=== PATIENT | female | born 1960 | race Caucasian/White ===

== ENCOUNTER 2022-10-18 12:21 | Inpatient (IN) | payer OTHER, BC ==
[~2022-10-18] VITALS: Ht 152.4 cm; Wt 57.8 kg
[2022-10-18 12:38] VITALS: BP_SYST 118; PULSE 80; RESP 18; TEMP 98.3; O2SAT 98
[2022-10-18 12:58] LABS: BASOPHILS % (AUTO) 0.3 % (0.0-2.0); HEMATOCRIT 24.8 % (36-48); HEMOGLOBIN 7.6 g/dL (12.0-16.0); LYMPHOCYTES # (AUTO) 0.1 K/uL (1.0-5.5); LYMPHOCYTES % (AUTO) 0.7 % (20.5-51.5); MEAN CORPUSCULAR HEMOGLOBIN 26 pg (27-31); MEAN CORPUSCULAR HGB CONC 31 % (32-36); MEAN CORPUSCULAR VOLUME 84 fL (79.0-98.0); MONOCYTES # (AUTO) 0.9 K/uL (0.0-1.0); MONOCYTES % (AUTO) 5.3 % (1.7-9.3); NEUTROPHILS # (AUTO) 16.2 K/uL (1.8-7.7); NEUTROPHILS % (AUTO) 93.7 % (40.0-70.0); RED BLOOD CELL COUNT(AUTO) 2.97 MIL/uL (4.2-6.2); RED CELL DISTRIBUTION WIDTH 18.5 % (9.0-15.0); WHITE BLOOD COUNT (AUTO) 17.3 K/uL (4.8-10.8)
[2022-10-18 13:14] LABS: INR 1.7 (0.8-1.2); PROTHROMBIN TIME 16.7 SECS (9.5-12.5)
[2022-10-18 13:20] LABS: PLATELET COUNT (AUTO) 71 K/uL (130-430)
[2022-10-18] MEDS: D5/0.45 NS 1,000 ML IV SCH ×2 (13:30→23:30)
[2022-10-18 13:32] LABS: ACETONE, SERUM NEGATIVE (NEGATIVE)
[2022-10-18 13:47] LABS: ALANINE AMINOTRANSFERASE 11 U/L (12-78); ALBUMIN 1.2 g/dL (3.4-4.8); AMYLASE 27 U/L (0-100); ANION GAP 9 (5-15); ASPARTATE AMINOTRANSFERASE 30 U/L (10-37); CALCIUM 7.8 mg/dL (8.4-11.0); CARBON DIOXIDE 29 mmol/L (23-29); CHLORIDE 100 mmol/L (98-107); CREATININE 3.61 mg/dL (0.55-1.30); GFR AFRICAN AMERICAN 16 mL/min (>90); GLUCOSE 345 mg/dL (74-106); LIPASE 159 U/L (73-393); SODIUM SERUM 138 mmol/L (136-145); TOTAL BILIRUBIN 1.7 mg/dL (0.0-1.0); TOTAL PROTEIN, SERUM 4.7 g/dL (6.4-8.3); UREA NITROGEN, BLOOD 61 mg/dL (8-21)
[2022-10-18 13:50] LABS: GFR NON AFRICAN-AMERICAN 13 mL/min (>90); POTASSIUM 2.6 mmol/L (3.5-5.1)
[2022-10-18] MEDS ORDERED: PIPERACILLIN/TAZO 4.5GM/DEX-IS 100 ML IV SCH (14:15)
[2022-10-18] MEDS ORDERED: NACL 0.9% 1,000 ML IV ONE (14:15)
[2022-10-18] MEDS ORDERED: KCL 20 mEq in 100 mL (PREMIX) 100 ML IV ONE (14:15)
[2022-10-18] MEDS ORDERED: GASTROGRAFIN 120 ML ONE (14:47)
[2022-10-18] MEDS ORDERED: VANCOMYCIN HCL 750 MG in NS 250 ML IV ONE (15:15)
[2022-10-18] MEDS ORDERED: PIPERACILLIN/TAZO 4.5GM/DEX-IS 100 ML IV ONE (16:00)
[2022-10-18] MEDS ORDERED: FOLI-43 PO (16:22)
[2022-10-18] MEDS ORDERED: FERR325T30 PO (16:22)
[2022-10-18] MEDS ORDERED: ONDA4TAB55 PO (16:22)
[2022-10-18] MEDS ORDERED: EMPA10TA PO (16:22)
[2022-10-18] MEDS ORDERED: RIFA200T10 PO (16:22)
[2022-10-18] MEDS ORDERED: SILV50CR43 TP (16:22)
[2022-10-18] MEDS ORDERED: MIDO5TAB4 PO (16:22)
[2022-10-18] MEDS ORDERED: IPRA3AMP9 HHN (16:22)
[2022-10-18] MEDS ORDERED: PANT40TA45 PO (16:22)
[2022-10-18 18:25] VITALS: BP_SYST 139; PULSE 89; RESP 16; TEMP 96.5; O2SAT 97
[2022-10-18 20:00] VITALS: BP_SYST 132; PULSE 82; RESP 16; TEMP 97.2; O2SAT 96
[2022-10-18] MEDS: PANTOPRAZOLE SODIUM 40 MG TAB PO SCH (20:55)
[2022-10-18] MEDS: MIDODRINE HCL 5 MG TABLET (PROAMATINE) PO SCH (20:55)
[2022-10-19] VITALS (9 sets, daily range): BP systolic 90–136; PULSE 86–100; RESP 16–18; TEMP 97–97.7; O2SAT 95–100
[2022-10-19] MEDS ORDERED: ONDANSETRON 4 MG ODT TAB PO PRN (04:00)
[2022-10-19 06:22] LABS: BASOPHILS # (AUTO) 0.1 K/uL (0.0-0.2); BASOPHILS % (AUTO) 0.3 % (0.0-2.0); HEMATOCRIT 27.6 % (36-48); HEMOGLOBIN 8.5 g/dL (12.0-16.0); LYMPHOCYTES # (AUTO) 0.1 K/uL (1.0-5.5); LYMPHOCYTES % (AUTO) 0.3 % (20.5-51.5); MEAN CORPUSCULAR HEMOGLOBIN 26 pg (27-31); MEAN CORPUSCULAR HGB CONC 31 % (32-36); MEAN CORPUSCULAR VOLUME 84 fL (79.0-98.0); MONOCYTES # (AUTO) 0.9 K/uL (0.0-1.0); MONOCYTES % (AUTO) 3.4 % (1.7-9.3); NEUTROPHILS # (AUTO) 23.8 K/uL (1.8-7.7); PLATELET COUNT (AUTO) 88 K/uL (130-430); RED CELL DISTRIBUTION WIDTH 18.5 % (9.0-15.0); WHITE BLOOD COUNT (AUTO) 24.8 K/uL (4.8-10.8)
[2022-10-19 06:39] LABS: CALCIUM 7.8 mg/dL (8.4-11.0); CREATININE 3.96 mg/dL (0.55-1.30); POTASSIUM 3.2 mmol/L (3.5-5.1)
[2022-10-19] MEDS: IPRATROPIUM/ALBUTEROL SULFATE 3 ML AMPUL.NEB (DUONEB) IH SCH ×3 (08:09→23:08)
[2022-10-19] MEDS: RIFAXIMIN 200 MG TABLET GT SCH (08:51)
[2022-10-19] MEDS: LACTULOSE 20 GM/30 ML UDC PO SCH ×3 (08:51→21:00)
[2022-10-19] MEDS: PANTOPRAZOLE SODIUM 40 MG TAB PO SCH ×2 (08:51→21:00)
[2022-10-19] MEDS: FERROUS SULFATE 325 MG TABLET.DR PO SCH (08:51)
[2022-10-19] MEDS: MIDODRINE HCL 5 MG TABLET (PROAMATINE) PO SCH ×3 (08:51→21:00)
[2022-10-19] MEDS: FOLIC ACID 1 MG TABLET PO SCH (08:51)
[2022-10-19] MEDS: SILVER SULFADIAZINE 1%, 25 GM TOPICAL CREAM (SSD) TP SCH (09:00)
[2022-10-19] MEDS ORDERED: EMPAGLIFLOZIN 10 MG TABLET PO SCH (09:00)
[2022-10-19] MEDS ORDERED: cefTRIAXone 1 GM in D5W 50 ML IV SCH (09:00)
[2022-10-19] MEDS: D5/0.45 NS 1,000 ML IV SCH ×2 (09:09→23:21)
[2022-10-19] MEDS ORDERED: KCL 20 mEq in 100 mL (PREMIX) 100 ML IV ONE (12:00)
[2022-10-19] MEDS ORDERED: *TPN PER PHARMACY XX PRN (14:15)
[2022-10-19] MEDS ORDERED: DEXTROSE 50% JECT 50 ML DISP.SYRIN IVP PRN (14:15)
[2022-10-19] MEDS ORDERED: BALSAM PERU/CASTOR OIL 56.7 GM OINT...G. TP PRN (16:15)
[2022-10-19] MEDS: PIPERACILLIN/TAZO 2.25G/DEX-IS 50 ML IV SCH ×2 (17:26→23:21)
[2022-10-19] MEDS ORDERED: ALBUMIN HUMAN 25% 100 ML IV ONE ×2 (19:49→20:00)
[2022-10-19] MEDS ORDERED: ALBUMIN HUMAN 25% 200 ML IV ONE (20:00)
[2022-10-19] MEDS: BALSAM PERU/CASTOR OIL 56.7 GM OINT...G. TP SCH (21:36)
[2022-10-20] VITALS (9 sets, daily range): BP systolic 75–101; PULSE 73–92; RESP 14–20; TEMP 96.4–97.9; O2SAT 94–99
[2022-10-20] MEDS: PIPERACILLIN/TAZO 2.25G/DEX-IS 50 ML IV SCH ×4 (05:33→23:02)
[2022-10-20] MEDS: IPRATROPIUM/ALBUTEROL SULFATE 3 ML AMPUL.NEB (DUONEB) IH SCH ×3 (07:28→23:33)
[2022-10-20 07:46] LABS: ALBUMIN 1.8 g/dL (3.4-4.8); CALCIUM 7.5 mg/dL (8.4-11.0); CREATININE 2.74 mg/dL (0.55-1.30); PHOSPHORUS 4.6 mg/dL (2.7-4.5); POTASSIUM 3.8 mmol/L (3.5-5.1); TOTAL BILIRUBIN 2.7 mg/dL (0.0-1.0); TOTAL PROTEIN, SERUM 3.9 g/dL (6.4-8.3)
[2022-10-20 07:55] LABS: BASOPHILS % (AUTO) 0.1 % (0.0-2.0); LYMPHOCYTES # (AUTO) 0.1 K/uL (1.0-5.5); LYMPHOCYTES % (AUTO) 0.6 % (20.5-51.5); MEAN CORPUSCULAR HEMOGLOBIN 26 pg (27-31); MEAN CORPUSCULAR HGB CONC 31 % (32-36); MEAN CORPUSCULAR VOLUME 83 fL (79.0-98.0); MONOCYTES # (AUTO) 0.5 K/uL (0.0-1.0); MONOCYTES % (AUTO) 4.2 % (1.7-9.3); NEUTROPHILS # (AUTO) 12.4 K/uL (1.8-7.7); NEUTROPHILS % (AUTO) 95.1 % (40.0-70.0); RED BLOOD CELL COUNT(AUTO) 2.32 MIL/uL (4.2-6.2); RED CELL DISTRIBUTION WIDTH 18.7 % (9.0-15.0)
[2022-10-20] MEDS: FOLIC ACID 1 MG TABLET PO SCH (09:00)
[2022-10-20] MEDS: FERROUS SULFATE 325 MG TABLET.DR PO SCH (09:00)
[2022-10-20] MEDS: MIDODRINE HCL 5 MG TABLET (PROAMATINE) PO SCH ×3 (09:00→20:20)
[2022-10-20] MEDS: LACTULOSE 20 GM/30 ML UDC PO SCH ×3 (09:00→20:20)
[2022-10-20] MEDS: PANTOPRAZOLE SODIUM 40 MG TAB PO SCH ×2 (09:00→20:21)
[2022-10-20] MEDS: RIFAXIMIN 200 MG TABLET GT SCH (09:00)
[2022-10-20 09:13] LABS: HEMATOCRIT 19.2 % (36-48)
[2022-10-20 09:14] LABS: PLATELET COUNT (AUTO) 39 K/uL (130-430)
[2022-10-20] MEDS ORDERED: DEXTROSE 50% JECT 50 ML DISP.SYRIN IVP PRN (09:30)
[2022-10-20] MEDS ORDERED: *PPN PER PHARMACY XX PRN (09:30)
[2022-10-20] MEDS ORDERED: INSULIN REGULAR, HUMAN 100 UNITS/ML, 3 ML VIAL (humuLIN R) SUBCUT PRN (09:30)
[2022-10-20] MEDS: SILVER SULFADIAZINE 1%, 25 GM TOPICAL CREAM (SSD) TP SCH (09:45)
[2022-10-20] MEDS: BALSAM PERU/CASTOR OIL 56.7 GM OINT...G. TP SCH ×2 (09:45→20:21)
[2022-10-20] MEDS: INSULIN REGULAR, HUMAN 100 UNITS/ML, 3 ML VIAL (humuLIN R) SUBCUT PRN ×3 (12:10→23:06)
[2022-10-20] MEDS ORDERED: [UNRECOGNIZED DRUG - OTHER] IV SCH ×7 (21:00)
[2022-10-20] MEDS ORDERED: MVI IV SCH ×7 (21:00)
[2022-10-20] MEDS ORDERED: TPN PERIPHERAL IV SCH ×7 (21:00)
[2022-10-20] MEDS ORDERED: POTASSIUM CHLORIDE IV SCH ×7 (21:00)
[2022-10-20] MEDS ORDERED: SODIUM CHLORIDE IV SCH ×7 (21:00)
[2022-10-21] VITALS (8 sets, daily range): BP systolic 92–124; PULSE 75–93; RESP 16–18; TEMP 96.3–98.4; O2SAT 96–99
[2022-10-21] MEDS: MENTHOL/ZINC OXIDE 113 GM OINT. TP PRN (02:07)
[2022-10-21] MEDS: PIPERACILLIN/TAZO 2.25G/DEX-IS 50 ML IV SCH ×4 (05:07→23:39)
[2022-10-21] MEDS: D5/0.45 NS 1,000 ML IV SCH (05:07)
[2022-10-21] MEDS: INSULIN REGULAR, HUMAN 100 UNITS/ML, 3 ML VIAL (humuLIN R) SUBCUT PRN (05:29)
[2022-10-21 06:14] LABS: BASOPHILS # (AUTO) 0.1 K/uL (0.0-0.2); BASOPHILS % (AUTO) 0.8 % (0.0-2.0); EOSINOPHILS # (AUTO) 0.1 K/uL (0.0-0.4); EOSINOPHILS % (AUTO) 0.6 % (0.0-4.0); HEMATOCRIT 32.3 % (36-48); HEMOGLOBIN 10.3 g/dL (12.0-16.0); LYMPHOCYTES # (AUTO) 0.1 K/uL (1.0-5.5); LYMPHOCYTES % (AUTO) 0.7 % (20.5-51.5); MEAN CORPUSCULAR HEMOGLOBIN 28 pg (27-31); MEAN CORPUSCULAR HGB CONC 32 % (32-36); MEAN CORPUSCULAR VOLUME 87 fL (79.0-98.0); MONOCYTES # (AUTO) 0.5 K/uL (0.0-1.0); MONOCYTES % (AUTO) 3.2 % (1.7-9.3); NEUTROPHILS % (AUTO) 94.7 % (40.0-70.0); RED BLOOD CELL COUNT(AUTO) 3.72 MIL/uL (4.2-6.2); RED CELL DISTRIBUTION WIDTH 18.8 % (9.0-15.0); WHITE BLOOD COUNT (AUTO) 16.9 K/uL (4.8-10.8)
[2022-10-21 06:20] LABS: PLATELET COUNT (AUTO) 41 K/uL (130-430)
[2022-10-21 06:37] LABS: ALBUMIN 1.8 g/dL (3.4-4.8); CALCIUM 7.8 mg/dL (8.4-11.0); CREATININE 3.35 mg/dL (0.55-1.30); POTASSIUM 3.9 mmol/L (3.5-5.1); TOTAL BILIRUBIN 3.5 mg/dL (0.0-1.0); TOTAL PROTEIN, SERUM 4.5 g/dL (6.4-8.3)
[2022-10-21] MEDS: IPRATROPIUM/ALBUTEROL SULFATE 3 ML AMPUL.NEB (DUONEB) IH SCH ×2 (07:24→23:17)
[2022-10-21] MEDS: FERROUS SULFATE 325 MG TABLET.DR PO SCH (09:00)
[2022-10-21] MEDS: PANTOPRAZOLE SODIUM 40 MG TAB PO SCH ×2 (09:00→21:00)
[2022-10-21] MEDS: SILVER SULFADIAZINE 1%, 25 GM TOPICAL CREAM (SSD) TP SCH (09:00)
[2022-10-21] MEDS: FOLIC ACID 1 MG TABLET PO SCH (09:00)
[2022-10-21] MEDS: MIDODRINE HCL 5 MG TABLET (PROAMATINE) PO SCH ×3 (09:00→23:17)
[2022-10-21] MEDS: RIFAXIMIN 200 MG TABLET GT SCH (09:00)
[2022-10-21] MEDS: LACTULOSE 20 GM/30 ML UDC PO SCH ×3 (09:00→21:00)
[2022-10-21] MEDS: BALSAM PERU/CASTOR OIL 56.7 GM OINT...G. TP SCH (14:25)
[2022-10-21] MEDS ORDERED: ALBUMIN HUMAN 25% 200 ML IV ONE (16:30)
[2022-10-21] MEDS ORDERED: ACETAMINOPHEN 650 MG SUPP.RECT RC PRN (18:15)
[2022-10-21] MEDS ORDERED: POTASSIUM CHLORIDE IV SCH ×7 (21:00)
[2022-10-21] MEDS ORDERED: TPN PERIPHERAL IV SCH ×7 (21:00)
[2022-10-21] MEDS ORDERED: [UNRECOGNIZED DRUG - OTHER] IV SCH ×7 (21:00)
[2022-10-21] MEDS ORDERED: MVI IV SCH ×7 (21:00)
[2022-10-21] MEDS ORDERED: SODIUM CHLORIDE IV SCH ×7 (21:00)
[2022-10-21] MEDS ORDERED: VANCOMYCIN HCL 1.25 GM/NS 250 ML IV SCH (23:00)
[2022-10-21] MEDS: FAT EMULSIONS 250 ML IV SCH (23:15)
[2022-10-22] VITALS (10 sets, daily range): BP systolic 90–118; PULSE 82–97; RESP 17–20; TEMP 97.1–98.4; O2SAT 95–100
[2022-10-22] MEDS: D5/0.45 NS 1,000 ML IV SCH (00:03)
[2022-10-22] MEDS: PIPERACILLIN/TAZO 2.25G/DEX-IS 50 ML IV SCH ×3 (06:04→17:41)
[2022-10-22] MEDS: INSULIN REGULAR, HUMAN 100 UNITS/ML, 3 ML VIAL (humuLIN R) SUBCUT PRN ×2 (06:23→17:38)
[2022-10-22 07:16] LABS: BASOPHILS % (AUTO) 0.3 % (0.0-2.0); EOSINOPHILS % (AUTO) 0.2 % (0.0-4.0); HEMATOCRIT 27.1 % (36-48); HEMOGLOBIN 8.7 g/dL (12.0-16.0); LYMPHOCYTES # (AUTO) 0.1 K/uL (1.0-5.5); LYMPHOCYTES % (AUTO) 0.6 % (20.5-51.5); MEAN CORPUSCULAR HEMOGLOBIN 28 pg (27-31); MEAN CORPUSCULAR HGB CONC 32 % (32-36); MEAN CORPUSCULAR VOLUME 86 fL (79.0-98.0); MONOCYTES # (AUTO) 0.4 K/uL (0.0-1.0); MONOCYTES % (AUTO) 3.8 % (1.7-9.3); NEUTROPHILS # (AUTO) 9.1 K/uL (1.8-7.7); NEUTROPHILS % (AUTO) 95.1 % (40.0-70.0); RED BLOOD CELL COUNT(AUTO) 3.16 MIL/uL (4.2-6.2); RED CELL DISTRIBUTION WIDTH 19.7 % (9.0-15.0); WHITE BLOOD COUNT (AUTO) 9.5 K/uL (4.8-10.8)
[2022-10-22] MEDS: IPRATROPIUM/ALBUTEROL SULFATE 3 ML AMPUL.NEB (DUONEB) IH SCH ×3 (07:18→23:28)
[2022-10-22 07:42] LABS: CALCIUM 7.6 mg/dL (8.4-11.0); CREATININE 2.41 mg/dL (0.55-1.30); PHOSPHORUS 2.7 mg/dL (2.7-4.5); POTASSIUM 3.5 mmol/L (3.5-5.1); TOTAL BILIRUBIN 6.1 mg/dL (0.0-1.0); TOTAL PROTEIN, SERUM 4.3 g/dL (6.4-8.3)
[2022-10-22] MEDS: FOLIC ACID 1 MG TABLET PO SCH (09:00)
[2022-10-22] MEDS: SILVER SULFADIAZINE 1%, 25 GM TOPICAL CREAM (SSD) TP SCH (09:00)
[2022-10-22] MEDS: RIFAXIMIN 200 MG TABLET GT SCH (09:00)
[2022-10-22] MEDS: FERROUS SULFATE 325 MG TABLET.DR PO SCH (09:00)
[2022-10-22] MEDS: MIDODRINE HCL 5 MG TABLET (PROAMATINE) PO SCH ×3 (09:00→21:00)
[2022-10-22] MEDS: PANTOPRAZOLE SODIUM 40 MG TAB PO SCH (09:00)
[2022-10-22] MEDS: LACTULOSE 20 GM/30 ML UDC PO SCH ×3 (09:00→21:00)
[2022-10-22] MEDS ORDERED: TPN PERIPHERAL 0.0001 ML, SODIUM CHLORIDE 40 MEQ, POTASSIUM CHLORIDE 20 MEQ, K PHOS 9 M... IV SCH ×16 (09:15→21:00)
[2022-10-22] MEDS: BALSAM PERU/CASTOR OIL 56.7 GM OINT...G. TP SCH (11:37)
[2022-10-22 12:16] LABS: PLATELET COUNT (AUTO) 19 K/uL (130-430)
[2022-10-22] MEDS: VANCOMYCIN HCL 750 MG in NS 250 ML IV SCH (13:13)
[2022-10-22] MEDS: FAT EMULSIONS 250 ML IV SCH (22:17)
[2022-10-23] VITALS (8 sets, daily range): BP systolic 100–106; PULSE 77–98; RESP 20–21; TEMP 97.8–98.7; O2SAT 96–100
[2022-10-23 05:21] LABS: BASOPHILS % (AUTO) 0.2 % (0.0-2.0); EOSINOPHILS % (AUTO) 0.1 % (0.0-4.0); HEMATOCRIT 27.1 % (36-48); HEMOGLOBIN 8.8 g/dL (12.0-16.0); LYMPHOCYTES # (AUTO) 0.1 K/uL (1.0-5.5); LYMPHOCYTES % (AUTO) 0.4 % (20.5-51.5); MEAN CORPUSCULAR HEMOGLOBIN 28 pg (27-31); MEAN CORPUSCULAR HGB CONC 32 % (32-36); MEAN CORPUSCULAR VOLUME 85 fL (79.0-98.0); MONOCYTES # (AUTO) 0.6 K/uL (0.0-1.0); NEUTROPHILS % (AUTO) 94.3 % (40.0-70.0); RED BLOOD CELL COUNT(AUTO) 3.19 MIL/uL (4.2-6.2); RED CELL DISTRIBUTION WIDTH 19.6 % (9.0-15.0); WHITE BLOOD COUNT (AUTO) 12.7 K/uL (4.8-10.8)
[2022-10-23 05:24] LABS: PLATELET COUNT (AUTO) 15 K/uL (130-430)
[2022-10-23 05:31] LABS: INR 1.7 (0.8-1.2); PROTHROMBIN TIME 16.9 SECS (9.5-12.5)
[2022-10-23] MEDS ORDERED: LEVOFLOXACIN 250 MG/D5W 50 ML IV ONE (05:43)
[2022-10-23 05:51] LABS: ALBUMIN 1.8 g/dL (3.4-4.8); CALCIUM 7.5 mg/dL (8.4-11.0); CREATININE 2.82 mg/dL (0.55-1.30); PHOSPHORUS 2.4 mg/dL (2.7-4.5); POTASSIUM 3.5 mmol/L (3.5-5.1); TOTAL PROTEIN, SERUM 4.3 g/dL (6.4-8.3)
[2022-10-23] MEDS: D5/0.45 NS 1,000 ML IV SCH ×2 (05:52→22:58)
[2022-10-23] MEDS: LEVOFLOXACIN 250 MG/D5W 50 ML IV SCH ×2 (05:54→22:58)
[2022-10-23] MEDS: INSULIN REGULAR, HUMAN 100 UNITS/ML, 3 ML VIAL (humuLIN R) SUBCUT PRN ×2 (06:01→16:57)
[2022-10-23] MEDS: IPRATROPIUM/ALBUTEROL SULFATE 3 ML AMPUL.NEB (DUONEB) IH SCH ×3 (07:15→23:14)
[2022-10-23] MEDS ORDERED: PHYTONADIONE 10 MG/ML AMP SUBCUT ONE (09:00)
[2022-10-23] MEDS: LACTULOSE 20 GM/30 ML UDC PO SCH ×3 (09:00→21:00)
[2022-10-23] MEDS: FOLIC ACID 1 MG TABLET PO SCH (09:00)
[2022-10-23] MEDS: MIDODRINE HCL 5 MG TABLET (PROAMATINE) PO SCH ×3 (09:00→21:00)
[2022-10-23] MEDS: RIFAXIMIN 200 MG TABLET GT SCH (09:00)
[2022-10-23] MEDS: PANTOPRAZOLE SODIUM 40 MG TAB PO SCH (09:00)
[2022-10-23] MEDS: FERROUS SULFATE 325 MG TABLET.DR PO SCH (09:00)
[2022-10-23] MEDS: MICAFUNGIN SODIUM 100 MG in NS 100 ML IV SCH (10:16)
[2022-10-23] MEDS: BALSAM PERU/CASTOR OIL 56.7 GM OINT...G. TP SCH (10:18)
[2022-10-23] MEDS: MENTHOL/ZINC OXIDE 113 GM OINT. TP PRN (10:19)
[2022-10-23] MEDS: SILVER SULFADIAZINE 1%, 25 GM TOPICAL CREAM (SSD) TP SCH (16:31)
[2022-10-23] MEDS ORDERED: [UNRECOGNIZED DRUG - OTHER] IV SCH ×9 (21:00)
[2022-10-23] MEDS ORDERED: SODIUM CHLORIDE IV SCH ×9 (21:00)
[2022-10-23] MEDS ORDERED: POTASSIUM CHLORIDE IV SCH ×9 (21:00)
[2022-10-23] MEDS ORDERED: TPN PERIPHERAL IV SCH ×9 (21:00)
[2022-10-23] MEDS: FAT EMULSIONS 250 ML IV SCH (22:56)
[2022-10-24] VITALS (10 sets, daily range): BP systolic 90–118; PULSE 83–109; RESP 16–21; TEMP 96.8–98.8; O2SAT 95–99
[2022-10-24 05:37] LABS: EOSINOPHILS % (AUTO) 0.1 % (0.0-4.0); HEMATOCRIT 26.3 % (36-48); HEMOGLOBIN 8.3 g/dL (12.0-16.0); LYMPHOCYTES # (AUTO) 0.1 K/uL (1.0-5.5); MEAN CORPUSCULAR HEMOGLOBIN 27 pg (27-31); MEAN CORPUSCULAR HGB CONC 32 % (32-36); MEAN CORPUSCULAR VOLUME 86 fL (79.0-98.0); MONOCYTES # (AUTO) 0.9 K/uL (0.0-1.0); MONOCYTES % (AUTO) 5.9 % (1.7-9.3); NEUTROPHILS # (AUTO) 14.5 K/uL (1.8-7.7); RED BLOOD CELL COUNT(AUTO) 3.06 MIL/uL (4.2-6.2); RED CELL DISTRIBUTION WIDTH 20.4 % (9.0-15.0); WHITE BLOOD COUNT (AUTO) 15.6 K/uL (4.8-10.8)
[2022-10-24 05:45] LABS: PLATELET COUNT (AUTO) 18 K/uL (130-430)
[2022-10-24 06:14] LABS: ALBUMIN 1.6 g/dL (3.4-4.8); CALCIUM 7.8 mg/dL (8.4-11.0); CREATININE 3.27 mg/dL (0.55-1.30); POTASSIUM 3.5 mmol/L (3.5-5.1); TOTAL BILIRUBIN 6.8 mg/dL (0.0-1.0); TOTAL PROTEIN, SERUM 4.5 g/dL (6.4-8.3)
[2022-10-24 06:15] LABS: INR 1.5 (0.8-1.2); PROTHROMBIN TIME 15.7 SECS (9.5-12.5)
[2022-10-24] MEDS: INSULIN REGULAR, HUMAN 100 UNITS/ML, 3 ML VIAL (humuLIN R) SUBCUT PRN ×2 (06:58→17:32)
[2022-10-24] MEDS: IPRATROPIUM/ALBUTEROL SULFATE 3 ML AMPUL.NEB (DUONEB) IH SCH ×3 (07:17→23:25)
[2022-10-24] MEDS: RIFAXIMIN 200 MG TABLET GT SCH (08:50)
[2022-10-24] MEDS: FERROUS SULFATE 325 MG TABLET.DR PO SCH (08:51)
[2022-10-24] MEDS: LACTULOSE 20 GM/30 ML UDC PO SCH ×3 (08:51→20:45)
[2022-10-24] MEDS: MIDODRINE HCL 5 MG TABLET (PROAMATINE) PO SCH ×3 (08:51→20:45)
[2022-10-24] MEDS: FOLIC ACID 1 MG TABLET PO SCH (08:51)
[2022-10-24] MEDS: PANTOPRAZOLE SODIUM 40 MG TAB PO SCH (08:52)
[2022-10-24] MEDS ORDERED: GASTROGRAFIN 120 ML ONE (09:52)
[2022-10-24] MEDS: MICAFUNGIN SODIUM 100 MG in NS 100 ML IV SCH (10:31)
[2022-10-24] MEDS: SILVER SULFADIAZINE 1%, 25 GM TOPICAL CREAM (SSD) TP SCH (10:32)
[2022-10-24] MEDS: BALSAM PERU/CASTOR OIL 56.7 GM OINT...G. TP SCH (10:33)
[2022-10-24] MEDS: VANCOMYCIN HCL 750 MG in NS 250 ML IV SCH (12:52)
[2022-10-24 19:17] LABS: BODY FLUID SOURCE/ TYPE PERITONEAL; SOURCE/TYPE ,BODY FLUID PERITONEAL
[2022-10-24 19:22] LABS: BF APPEARANCE UNSPUN CLOUDY (CLEAR); BODY FLUID COLOR AMBER (LT YELLOW); BODY FLUID TOTAL VOLUME 5600 mL
[2022-10-24] MEDS: FAT EMULSIONS 250 ML IV SCH (20:31)
[2022-10-24] MEDS ORDERED: TPN PERIPHERAL IV SCH ×10 (21:00)
[2022-10-24] MEDS ORDERED: [UNRECOGNIZED DRUG - OTHER] IV SCH ×10 (21:00)
[2022-10-24] MEDS ORDERED: POTASSIUM CHLORIDE IV SCH ×10 (21:00)
[2022-10-24] MEDS ORDERED: SODIUM CHLORIDE IV SCH ×10 (21:00)
[2022-10-24] MEDS ORDERED: ALBUMIN HUMAN 25% 200 ML IV ONE ×2 (21:30→22:00)
[2022-10-24] MEDS ORDERED: ALBUMIN HUMAN 25% 100 ML IV ONE ×2 (22:00)
[2022-10-24 22:17] LABS: BODY FLUID GLUCOSE 199 mg/dL
[2022-10-24 23:27] LABS: WBC, BODY FLUID 1700 /uL
[2022-10-24 23:28] LABS: APPEARANCE,SPUN,BODY FLUID CLEAR (CLEAR); EOSINOPHIL, BODY FLUID 0 %; LYMPHOCYTES, BODY FLUID 2 %; MONOCYTES,BODY FLUID 3 %; NEUTROPHIL, BODY FLUID 95 %; RBC, BODY FLUID 37500 /uL
[2022-10-25] VITALS (9 sets, daily range): BP systolic 100–119; PULSE 76–98; RESP 16–19; TEMP 96.5–97.9; O2SAT 95–98
[2022-10-25] MEDS: LEVOFLOXACIN 250 MG/D5W 50 ML IV SCH ×2 (01:34→23:38)
[2022-10-25] MEDS: INSULIN REGULAR, HUMAN 100 UNITS/ML, 3 ML VIAL (humuLIN R) SUBCUT PRN ×2 (06:33→23:52)
[2022-10-25] MEDS: IPRATROPIUM/ALBUTEROL SULFATE 3 ML AMPUL.NEB (DUONEB) IH SCH ×3 (07:13→23:10)
[2022-10-25 07:30] LABS: BASOPHILS % (AUTO) 0.1 % (0.0-2.0); EOSINOPHILS % (AUTO) 0.3 % (0.0-4.0); HEMATOCRIT 23.3 % (36-48); HEMOGLOBIN 7.5 g/dL (12.0-16.0); LYMPHOCYTES # (AUTO) 0.1 K/uL (1.0-5.5); LYMPHOCYTES % (AUTO) 1.1 % (20.5-51.5); MEAN CORPUSCULAR HEMOGLOBIN 27 pg (27-31); MEAN CORPUSCULAR HGB CONC 32 % (32-36); MEAN CORPUSCULAR VOLUME 85 fL (79.0-98.0); MONOCYTES # (AUTO) 0.6 K/uL (0.0-1.0); MONOCYTES % (AUTO) 5.6 % (1.7-9.3); NEUTROPHILS # (AUTO) 10.7 K/uL (1.8-7.7); NEUTROPHILS % (AUTO) 92.9 % (40.0-70.0); RED BLOOD CELL COUNT(AUTO) 2.75 MIL/uL (4.2-6.2); RED CELL DISTRIBUTION WIDTH 20.6 % (9.0-15.0); WHITE BLOOD COUNT (AUTO) 11.5 K/uL (4.8-10.8)
[2022-10-25 07:41] LABS: PLATELET COUNT (AUTO) 16 K/uL (130-430)
[2022-10-25 07:44] LABS: CALCIUM 8.2 mg/dL (8.4-11.0); CREATININE 3.74 mg/dL (0.55-1.30); PHOSPHORUS 4.6 mg/dL (2.7-4.5); TOTAL BILIRUBIN 7.1 mg/dL (0.0-1.0); TOTAL PROTEIN, SERUM 4.2 g/dL (6.4-8.3)
[2022-10-25] MEDS: SILVER SULFADIAZINE 1%, 25 GM TOPICAL CREAM (SSD) TP SCH (09:00)
[2022-10-25] MEDS: LACTULOSE 20 GM/30 ML UDC PO SCH ×3 (11:15→21:54)
[2022-10-25] MEDS: FERROUS SULFATE 325 MG TABLET.DR PO SCH (11:15)
[2022-10-25] MEDS: FOLIC ACID 1 MG TABLET PO SCH (11:15)
[2022-10-25] MEDS: MIDODRINE HCL 5 MG TABLET (PROAMATINE) PO SCH ×2 (11:15→21:55)
[2022-10-25] MEDS: RIFAXIMIN 200 MG TABLET GT SCH (11:15)
[2022-10-25] MEDS: PANTOPRAZOLE SODIUM 40 MG TAB PO SCH (11:16)
[2022-10-25] MEDS: MICAFUNGIN SODIUM 100 MG in NS 100 ML IV SCH (11:32)
[2022-10-25] MEDS ORDERED: ALBUMIN HUMAN 25% 200 ML IV ONE (13:45)
[2022-10-25] MEDS ORDERED: POTASSIUM CHLORIDE IV SCH ×19 (21:00)
[2022-10-25] MEDS ORDERED: TPN PERIPHERAL IV SCH ×19 (21:00)
[2022-10-25] MEDS ORDERED: SODIUM CHLORIDE IV SCH ×19 (21:00)
[2022-10-25] MEDS ORDERED: [UNRECOGNIZED DRUG - OTHER] IV SCH ×19 (21:00)
[2022-10-25] MEDS: FAT EMULSIONS 250 ML IV SCH (21:54)
[2022-10-26] VITALS (8 sets, daily range): BP systolic 97–106; PULSE 85–96; RESP 16–18; TEMP 97.2–99.6; O2SAT 95–97
[2022-10-26 05:36] LABS: BASOPHILS % (AUTO) 0.1 % (0.0-2.0); HEMATOCRIT 24.2 % (36-48); HEMOGLOBIN 7.8 g/dL (12.0-16.0); LYMPHOCYTES # (AUTO) 0.1 K/uL (1.0-5.5); LYMPHOCYTES % (AUTO) 0.5 % (20.5-51.5); MEAN CORPUSCULAR HEMOGLOBIN 27 pg (27-31); MEAN CORPUSCULAR HGB CONC 32 % (32-36); MEAN CORPUSCULAR VOLUME 85 fL (79.0-98.0); MONOCYTES % (AUTO) 6.6 % (1.7-9.3); NEUTROPHILS # (AUTO) 13.6 K/uL (1.8-7.7); NEUTROPHILS % (AUTO) 92.8 % (40.0-70.0); RED BLOOD CELL COUNT(AUTO) 2.84 MIL/uL (4.2-6.2); RED CELL DISTRIBUTION WIDTH 20.9 % (9.0-15.0); WHITE BLOOD COUNT (AUTO) 14.6 K/uL (4.8-10.8)
[2022-10-26] MEDS: INSULIN REGULAR, HUMAN 100 UNITS/ML, 3 ML VIAL (humuLIN R) SUBCUT PRN ×4 (05:42→23:59)
[2022-10-26 05:44] LABS: INR 1.5 (0.8-1.2); PROTHROMBIN TIME 15.5 SECS (9.5-12.5)
[2022-10-26 05:56] LABS: PLATELET COUNT (AUTO) 17 K/uL (130-430)
[2022-10-26 06:01] LABS: CALCIUM 8.3 mg/dL (8.4-11.0); CREATININE 2.81 mg/dL (0.55-1.30); PHOSPHORUS 3.5 mg/dL (2.7-4.5); POTASSIUM 4.1 mmol/L (3.5-5.1); TOTAL BILIRUBIN 7.7 mg/dL (0.0-1.0); TOTAL PROTEIN, SERUM 4.5 g/dL (6.4-8.3)
[2022-10-26] MEDS: IPRATROPIUM/ALBUTEROL SULFATE 3 ML AMPUL.NEB (DUONEB) IH SCH ×2 (07:18→23:12)
[2022-10-26] MEDS: PANTOPRAZOLE SODIUM 40 MG TAB PO SCH (08:35)
[2022-10-26] MEDS: RIFAXIMIN 200 MG TABLET GT SCH (08:35)
[2022-10-26] MEDS: FOLIC ACID 1 MG TABLET PO SCH (08:35)
[2022-10-26] MEDS: FERROUS SULFATE 325 MG TABLET.DR PO SCH (08:35)
[2022-10-26] MEDS: MIDODRINE HCL 5 MG TABLET (PROAMATINE) PO SCH ×3 (08:36→22:47)
[2022-10-26] MEDS: LACTULOSE 20 GM/30 ML UDC PO SCH ×3 (08:36→22:47)
[2022-10-26] MEDS: SILVER SULFADIAZINE 1%, 25 GM TOPICAL CREAM (SSD) TP SCH (08:40)
[2022-10-26] MEDS: BALSAM PERU/CASTOR OIL 56.7 GM OINT...G. TP SCH (08:40)
[2022-10-26] MEDS: MICAFUNGIN SODIUM 100 MG in NS 100 ML IV SCH (12:04)
[2022-10-26] MEDS: VANCOMYCIN HCL 750 MG in NS 250 ML IV SCH (13:20)
[2022-10-26] MEDS ORDERED: TPN PERIPHERAL IV SCH ×9 (21:00)
[2022-10-26] MEDS ORDERED: SODIUM CHLORIDE IV SCH ×9 (21:00)
[2022-10-26] MEDS ORDERED: [UNRECOGNIZED DRUG - OTHER] IV SCH ×9 (21:00)
[2022-10-26] MEDS ORDERED: POTASSIUM CHLORIDE IV SCH ×9 (21:00)
[2022-10-26] MEDS: FAT EMULSIONS 250 ML IV SCH (21:23)
[2022-10-26] MEDS: LEVOFLOXACIN 250 MG/D5W 50 ML IV SCH (23:57)
[2022-10-27 00:38] VITALS: BP_SYST 118; PULSE 99; RESP 20; TEMP 99.3; O2SAT 91
[2022-10-27] MEDS: INSULIN REGULAR, HUMAN 100 UNITS/ML, 3 ML VIAL (humuLIN R) SUBCUT PRN ×3 (05:14→19:02)
[2022-10-27] MEDS: IPRATROPIUM/ALBUTEROL SULFATE 3 ML AMPUL.NEB (DUONEB) IH SCH ×3 (07:00→23:26)
[2022-10-27 07:05] LABS: MEAN CORPUSCULAR HEMOGLOBIN 27 pg (27-31); MEAN CORPUSCULAR HGB CONC 32 % (32-36); MEAN CORPUSCULAR VOLUME 85 fL (79.0-98.0); RED BLOOD CELL COUNT(AUTO) 2.57 MIL/uL (4.2-6.2); RED CELL DISTRIBUTION WIDTH 21.4 % (9.0-15.0); WHITE BLOOD COUNT (AUTO) 17.8 K/uL (4.8-10.8)
[2022-10-27 07:38] LABS: ALBUMIN 1.6 g/dL (3.4-4.8); CREATININE 2.35 mg/dL (0.55-1.30); PHOSPHORUS 2.5 mg/dL (2.7-4.5); POTASSIUM 3.5 mmol/L (3.5-5.1); TOTAL BILIRUBIN 7.4 mg/dL (0.0-1.0); TOTAL PROTEIN, SERUM 4.3 g/dL (6.4-8.3)
[2022-10-27 08:00] VITALS: BP_SYST 108; PULSE 96; RESP 19; TEMP 99.1; O2SAT 96
[2022-10-27 08:11] LABS: HEMATOCRIT 21.8 % (36-48); PLATELET COUNT (AUTO) 19 K/uL (130-430)
[2022-10-27] MEDS: LACTULOSE 20 GM/30 ML UDC PO SCH ×3 (09:00→21:41)
[2022-10-27] MEDS: SILVER SULFADIAZINE 1%, 25 GM TOPICAL CREAM (SSD) TP SCH (09:00)
[2022-10-27] MEDS: MIDODRINE HCL 5 MG TABLET (PROAMATINE) PO SCH ×3 (09:00→21:41)
[2022-10-27 09:17] LABS: BAND % (MANUAL) 7 % (0-6); BASOPHILS % (MANUAL) 0 % (0-2); EOSINOPHILS % (MANUAL) 0 % (0-7); LYMPHOCYTES % (MANUAL) 0 % (20-46); MONOCYTES % (MANUAL) 4 % (0-11)
[2022-10-27 09:18] LABS: ANISOCYTOSIS 2+; PLATELET ESTIMATE DECREASED (ADEQUATE)
[2022-10-27 12:00] VITALS: BP_SYST 117; PULSE 97; RESP 19; TEMP 99.5; O2SAT 97
[2022-10-27] MEDS ORDERED: NS 1000 ML IV.SOLN IV ONE (14:55)
[2022-10-27] MEDS ORDERED: LIDOCAINE/EPI 1% 1:100000 20 ML VIAL ONE (14:55)
[2022-10-27] MEDS ORDERED: BUPIVACAINE /PF 0.25% 30 ML VIAL INJ ONE (14:55)
[2022-10-27] MEDS ORDERED: PROPOFOL 200MG/ 20ML VIAL (DIPRIVAN) IV ONE (14:55)
[2022-10-27] MEDS ORDERED: NS IRRIG SOLN 1000 ML IR ONE (14:55)
[2022-10-27] MEDS: FERROUS SULFATE 325 MG TABLET.DR PO SCH (15:33)
[2022-10-27] MEDS: RIFAXIMIN 200 MG TABLET GT SCH (15:33)
[2022-10-27] MEDS: FOLIC ACID 1 MG TABLET PO SCH (15:33)
[2022-10-27] MEDS: PANTOPRAZOLE SODIUM 40 MG TAB PO SCH (15:34)
[2022-10-27] MEDS: MICAFUNGIN SODIUM 100 MG in NS 100 ML IV SCH (15:40)
[2022-10-27] MEDS: BALSAM PERU/CASTOR OIL 56.7 GM OINT...G. TP SCH (15:53)
[2022-10-27] MEDS: MENTHOL/ZINC OXIDE 113 GM OINT. TP PRN (15:53)
[2022-10-27 16:37] VITALS: BP_SYST 111; PULSE 95; RESP 18; TEMP 99.7; O2SAT 98
[2022-10-27 19:00] VITALS: O2SAT 97
[2022-10-27] MEDS ORDERED: TPN PERIPHERAL IV SCH ×9 (21:00)
[2022-10-27] MEDS ORDERED: POTASSIUM CHLORIDE IV SCH ×9 (21:00)
[2022-10-27] MEDS ORDERED: SODIUM CHLORIDE IV SCH ×9 (21:00)
[2022-10-27] MEDS ORDERED: [UNRECOGNIZED DRUG - OTHER] IV SCH ×9 (21:00)
[2022-10-27] MEDS: FAT EMULSIONS 250 ML IV SCH (21:45)
[2022-10-27] MEDS: LEVOFLOXACIN 250 MG/D5W 50 ML IV SCH (23:34)
[2022-10-27 23:44] VITALS: O2SAT 98
[2022-10-28] VITALS (9 sets, daily range): BP systolic 115–139; PULSE 93–100; RESP 17–18; TEMP 97.9–99.5; O2SAT 96–98
[2022-10-28] MEDS: INSULIN REGULAR, HUMAN 100 UNITS/ML, 3 ML VIAL (humuLIN R) SUBCUT PRN ×4 (00:18→18:16)
[2022-10-28 06:57] LABS: ALBUMIN 1.5 g/dL (3.4-4.8); CALCIUM 8.6 mg/dL (8.4-11.0); CREATININE 2.92 mg/dL (0.55-1.30); PHOSPHORUS 4.1 mg/dL (2.7-4.5); POTASSIUM 4.4 mmol/L (3.5-5.1); TOTAL BILIRUBIN 8.6 mg/dL (0.0-1.0); TOTAL PROTEIN, SERUM 5.2 g/dL (6.4-8.3)
[2022-10-28 07:14] LABS: BASOPHILS % (AUTO) 0.1 % (0.0-2.0); EOSINOPHILS % (AUTO) 0.1 % (0.0-4.0); HEMATOCRIT 24.5 % (36-48); HEMOGLOBIN 7.8 g/dL (12.0-16.0); LYMPHOCYTES # (AUTO) 0.1 K/uL (1.0-5.5); LYMPHOCYTES % (AUTO) 0.6 % (20.5-51.5); MEAN CORPUSCULAR HEMOGLOBIN 27 pg (27-31); MEAN CORPUSCULAR HGB CONC 32 % (32-36); MEAN CORPUSCULAR VOLUME 85 fL (79.0-98.0); MONOCYTES % (AUTO) 5.6 % (1.7-9.3); RED BLOOD CELL COUNT(AUTO) 2.86 MIL/uL (4.2-6.2); RED CELL DISTRIBUTION WIDTH 21.3 % (9.0-15.0); WHITE BLOOD COUNT (AUTO) 18.2 K/uL (4.8-10.8)
[2022-10-28] MEDS: IPRATROPIUM/ALBUTEROL SULFATE 3 ML AMPUL.NEB (DUONEB) IH SCH ×2 (07:26→15:41)
[2022-10-28 08:12] LABS: PLATELET COUNT (AUTO) 29 K/uL (130-430)
[2022-10-28 08:13] LABS: NEUTROPHILS % (AUTO) 93.6 % (40.0-70.0)
[2022-10-28] MEDS: FERROUS SULFATE 325 MG TABLET.DR PO SCH (09:42)
[2022-10-28] MEDS: MIDODRINE HCL 5 MG TABLET (PROAMATINE) PO SCH ×3 (09:42→21:34)
[2022-10-28] MEDS: RIFAXIMIN 200 MG TABLET GT SCH (09:43)
[2022-10-28] MEDS: FOLIC ACID 1 MG TABLET PO SCH (09:43)
[2022-10-28] MEDS: PANTOPRAZOLE SODIUM 40 MG TAB PO SCH (09:43)
[2022-10-28] MEDS: LACTULOSE 20 GM/30 ML UDC PO SCH ×3 (09:43→21:33)
[2022-10-28] MEDS ORDERED: IPRATROPIUM/ALBUTEROL SULFATE 3 ML AMPUL.NEB (DUONEB) INH PRN (11:45)
[2022-10-28] MEDS: MICAFUNGIN SODIUM 100 MG in NS 100 ML IV SCH (12:10)
[2022-10-28] MEDS: VANCOMYCIN HCL 750 MG in NS 250 ML IV SCH (14:47)
[2022-10-28] MEDS: BALSAM PERU/CASTOR OIL 56.7 GM OINT...G. TP SCH (14:56)
[2022-10-28] MEDS: MENTHOL/ZINC OXIDE 113 GM OINT. TP PRN (14:56)
[2022-10-28] MEDS: SILVER SULFADIAZINE 1%, 25 GM TOPICAL CREAM (SSD) TP SCH (18:46)
[2022-10-28] MEDS ORDERED: TPN PERIPHERAL IV SCH ×9 (21:00)
[2022-10-28] MEDS ORDERED: [UNRECOGNIZED DRUG - OTHER] IV SCH ×9 (21:00)
[2022-10-28] MEDS ORDERED: POTASSIUM CHLORIDE IV SCH ×9 (21:00)
[2022-10-28] MEDS ORDERED: SODIUM CHLORIDE IV SCH ×9 (21:00)
[2022-10-28] MEDS: FAT EMULSIONS 250 ML IV SCH (21:53)
[2022-10-29] VITALS (8 sets, daily range): BP systolic 122–138; PULSE 89–100; RESP 15–20; TEMP 97.2–98.2; O2SAT 91–99
[2022-10-29] MEDS: IPRATROPIUM/ALBUTEROL SULFATE 3 ML AMPUL.NEB (DUONEB) IH SCH ×4 (00:23→23:22)
[2022-10-29] MEDS: INSULIN REGULAR, HUMAN 100 UNITS/ML, 3 ML VIAL (humuLIN R) SUBCUT PRN ×4 (00:29→18:08)
[2022-10-29] MEDS: LEVOFLOXACIN 250 MG/D5W 50 ML IV SCH ×2 (00:42→21:54)
[2022-10-29 07:37] LABS: BASOPHILS # (AUTO) 0.1 K/uL (0.0-0.2); BASOPHILS % (AUTO) 0.4 % (0.0-2.0); EOSINOPHILS % (AUTO) 0.1 % (0.0-4.0); HEMATOCRIT 22.3 % (36-48); LYMPHOCYTES # (AUTO) 0.2 K/uL (1.0-5.5); LYMPHOCYTES % (AUTO) 0.8 % (20.5-51.5); MEAN CORPUSCULAR HEMOGLOBIN 27 pg (27-31); MEAN CORPUSCULAR HGB CONC 32 % (32-36); MEAN CORPUSCULAR VOLUME 86 fL (79.0-98.0); MONOCYTES # (AUTO) 1.3 K/uL (0.0-1.0); MONOCYTES % (AUTO) 6.6 % (1.7-9.3); NEUTROPHILS # (AUTO) 17.9 K/uL (1.8-7.7); NEUTROPHILS % (AUTO) 92.1 % (40.0-70.0); RED CELL DISTRIBUTION WIDTH 22.4 % (9.0-15.0); WHITE BLOOD COUNT (AUTO) 19.4 K/uL (4.8-10.8)
[2022-10-29 07:47] LABS: ALBUMIN 1.4 g/dL (3.4-4.8); CALCIUM 8.4 mg/dL (8.4-11.0); CREATININE 3.47 mg/dL (0.55-1.30); PHOSPHORUS 4.9 mg/dL (2.7-4.5); POTASSIUM 3.9 mmol/L (3.5-5.1); TOTAL BILIRUBIN 7.3 mg/dL (0.0-1.0)
[2022-10-29 08:16] LABS: PLATELET COUNT (AUTO) 45 K/uL (130-430)
[2022-10-29] MEDS: FERROUS SULFATE 325 MG TABLET.DR PO SCH (08:47)
[2022-10-29] MEDS: RIFAXIMIN 200 MG TABLET GT SCH (08:47)
[2022-10-29] MEDS: FOLIC ACID 1 MG TABLET PO SCH (08:47)
[2022-10-29] MEDS: MIDODRINE HCL 5 MG TABLET (PROAMATINE) PO SCH ×3 (08:47→21:49)
[2022-10-29] MEDS: PANTOPRAZOLE SODIUM 40 MG TAB PO SCH (08:47)
[2022-10-29] MEDS: LACTULOSE 20 GM/30 ML UDC PO SCH ×3 (08:48→21:48)
[2022-10-29] MEDS: BALSAM PERU/CASTOR OIL 56.7 GM OINT...G. TP SCH (09:00)
[2022-10-29] MEDS: SILVER SULFADIAZINE 1%, 25 GM TOPICAL CREAM (SSD) TP SCH (09:00)
[2022-10-29] MEDS: MICAFUNGIN SODIUM 100 MG in NS 100 ML IV SCH (11:22)
[2022-10-29] MEDS ORDERED: [UNRECOGNIZED DRUG - OTHER] IV SCH ×8 (21:00)
[2022-10-29] MEDS ORDERED: SODIUM CHLORIDE IV SCH ×8 (21:00)
[2022-10-29] MEDS ORDERED: TPN PERIPHERAL IV SCH ×8 (21:00)
[2022-10-29] MEDS ORDERED: POTASSIUM CHLORIDE IV SCH ×8 (21:00)
[2022-10-29] MEDS: FAT EMULSIONS 250 ML IV SCH (21:50)
[2022-10-30] VITALS (9 sets, daily range): BP systolic 110–119; PULSE 72–96; RESP 16–19; TEMP 97.5–99.2; O2SAT 95–100
[2022-10-30 05:47] LABS: BASOPHILS % (AUTO) 0.1 % (0.0-2.0); LYMPHOCYTES # (AUTO) 0.3 K/uL (1.0-5.5); LYMPHOCYTES % (AUTO) 1.4 % (20.5-51.5); MEAN CORPUSCULAR HEMOGLOBIN 27 pg (27-31); MEAN CORPUSCULAR HGB CONC 32 % (32-36); MEAN CORPUSCULAR VOLUME 86 fL (79.0-98.0); MONOCYTES # (AUTO) 1.2 K/uL (0.0-1.0); MONOCYTES % (AUTO) 6.5 % (1.7-9.3); NEUTROPHILS # (AUTO) 17.4 K/uL (1.8-7.7); RED CELL DISTRIBUTION WIDTH 22.5 % (9.0-15.0); WHITE BLOOD COUNT (AUTO) 18.9 K/uL (4.8-10.8)
[2022-10-30] MEDS: INSULIN REGULAR, HUMAN 100 UNITS/ML, 3 ML VIAL (humuLIN R) SUBCUT PRN ×2 (06:29→17:37)
[2022-10-30 06:42] LABS: HEMOGLOBIN 6.3 g/dL (12.0-16.0)
[2022-10-30 06:43] LABS: HEMATOCRIT 19.8 % (36-48); PLATELET COUNT (AUTO) 44 K/uL (130-430)
[2022-10-30 06:45] LABS: POTASSIUM 4.6 mmol/L (3.5-5.1)
[2022-10-30 06:46] LABS: ALBUMIN 1.3 g/dL (3.4-4.8); CALCIUM 8.2 mg/dL (8.4-11.0); CREATININE 3.96 mg/dL (0.55-1.30); PHOSPHORUS 5.6 mg/dL (2.7-4.5); TOTAL BILIRUBIN 7.8 mg/dL (0.0-1.0)
[2022-10-30] MEDS: IPRATROPIUM/ALBUTEROL SULFATE 3 ML AMPUL.NEB (DUONEB) IH SCH ×3 (07:27→23:42)
[2022-10-30] MEDS: PANTOPRAZOLE SODIUM 40 MG TAB PO SCH (10:03)
[2022-10-30] MEDS: RIFAXIMIN 200 MG TABLET GT SCH (10:03)
[2022-10-30] MEDS: FERROUS SULFATE 325 MG TABLET.DR PO SCH (10:03)
[2022-10-30] MEDS: LACTULOSE 20 GM/30 ML UDC PO SCH ×3 (10:03→23:08)
[2022-10-30] MEDS: FOLIC ACID 1 MG TABLET PO SCH (10:04)
[2022-10-30] MEDS: SILVER SULFADIAZINE 1%, 25 GM TOPICAL CREAM (SSD) TP SCH (10:04)
[2022-10-30] MEDS: MIDODRINE HCL 5 MG TABLET (PROAMATINE) PO SCH ×3 (10:04→23:08)
[2022-10-30] MEDS: BALSAM PERU/CASTOR OIL 56.7 GM OINT...G. TP SCH (10:05)
[2022-10-30] MEDS: MENTHOL/ZINC OXIDE 113 GM OINT. TP PRN (10:05)
[2022-10-30] MEDS: MICAFUNGIN SODIUM 100 MG in NS 100 ML IV SCH (12:58)
[2022-10-30] MEDS ORDERED: POTASSIUM CHLORIDE IV SCH ×8 (21:00)
[2022-10-30] MEDS ORDERED: SODIUM CHLORIDE IV SCH ×8 (21:00)
[2022-10-30] MEDS ORDERED: [UNRECOGNIZED DRUG - OTHER] IV SCH ×8 (21:00)
[2022-10-30] MEDS ORDERED: TPN PERIPHERAL IV SCH ×8 (21:00)
[2022-10-31] VITALS (12 sets, daily range): BP systolic 92–123; PULSE 84–105; RESP 16–20; TEMP 97.2–99.5; O2SAT 94–100
[2022-10-31] MEDS: LEVOFLOXACIN 250 MG/D5W 50 ML IV SCH ×2 (00:16→23:47)
[2022-10-31] MEDS: IPRATROPIUM/ALBUTEROL SULFATE 3 ML AMPUL.NEB (DUONEB) IH SCH ×2 (07:19→15:15)
[2022-10-31 07:28] LABS: BASOPHILS % (AUTO) 0.1 % (0.0-2.0); EOSINOPHILS % (AUTO) 0.1 % (0.0-4.0); HEMATOCRIT 29.1 % (36-48); HEMOGLOBIN 9.2 g/dL (12.0-16.0); LYMPHOCYTES # (AUTO) 0.2 K/uL (1.0-5.5); LYMPHOCYTES % (AUTO) 0.9 % (20.5-51.5); MEAN CORPUSCULAR HEMOGLOBIN 27 pg (27-31); MEAN CORPUSCULAR HGB CONC 32 % (32-36); MEAN CORPUSCULAR VOLUME 86 fL (79.0-98.0); MONOCYTES # (AUTO) 1.4 K/uL (0.0-1.0); MONOCYTES % (AUTO) 6.3 % (1.7-9.3); NEUTROPHILS # (AUTO) 20.8 K/uL (1.8-7.7); PLATELET COUNT (AUTO) 51 K/uL (130-430); RED BLOOD CELL COUNT(AUTO) 3.38 MIL/uL (4.2-6.2); WHITE BLOOD COUNT (AUTO) 22.4 K/uL (4.8-10.8)
[2022-10-31 07:41] LABS: INR 1.6 (0.8-1.2); PROTHROMBIN TIME 16.4 SECS (9.5-12.5)
[2022-10-31 07:42] LABS: CALCIUM 8.3 mg/dL (8.4-11.0); CREATININE 4.31 mg/dL (0.55-1.30); VANCOMYCIN,TROUGH 21.7 ug/mL (10.0-20.0)
[2022-10-31] MEDS: LACTULOSE 20 GM/30 ML UDC PO SCH ×3 (08:22→22:45)
[2022-10-31] MEDS: FERROUS SULFATE 325 MG TABLET.DR PO SCH (08:22)
[2022-10-31] MEDS: PANTOPRAZOLE SODIUM 40 MG TAB PO SCH (08:22)
[2022-10-31] MEDS: RIFAXIMIN 200 MG TABLET GT SCH (08:22)
[2022-10-31] MEDS: MIDODRINE HCL 5 MG TABLET (PROAMATINE) PO SCH ×3 (08:22→22:46)
[2022-10-31] MEDS: FOLIC ACID 1 MG TABLET PO SCH (08:22)
[2022-10-31 08:30] LABS: NEUTROPHILS % (AUTO) 92.6 % (40.0-70.0)
[2022-10-31] MEDS ORDERED: PHYTONADIONE 1 MG/0.5 ML SYR SUBCUT ONE (09:15)
[2022-10-31] MEDS: MICAFUNGIN SODIUM 100 MG in NS 100 ML IV SCH (11:15)
[2022-10-31] MEDS: BALSAM PERU/CASTOR OIL 56.7 GM OINT...G. TP SCH (12:38)
[2022-10-31] MEDS: SILVER SULFADIAZINE 1%, 25 GM TOPICAL CREAM (SSD) TP SCH (12:38)
[2022-10-31] MEDS ORDERED: BUPIVACAINE /PF 0.25% 30 ML VIAL INJ ONE (12:45)
[2022-10-31] MEDS ORDERED: NS 250 ML BAG IV ONE (12:45)
[2022-10-31] MEDS ORDERED: MIDAZOLAM HCL/PF 2 MG/2 ML SYRINGE ONE (12:45)
[2022-10-31] MEDS ORDERED: LIDOCAINE 1% 10 MG/ML, 20 ML MDV ONE (12:45)
[2022-10-31] MEDS ORDERED: NS IRRIG SOLN 1000 ML IR ONE (12:45)
[2022-10-31] MEDS ORDERED: HEPARIN SODIUM, PORCINE 10,000 UNITS/ 10 ML VIAL ONE (12:45)
[2022-10-31] MEDS ORDERED: ONDANSETRON HCL 4 MG/2 ML VIAL IVP PRN (14:15)
[2022-10-31] MEDS ORDERED: NACL 0.9% 1,000 ML IV SCH (14:15)
[2022-10-31] MEDS ORDERED: ALBUMIN HUMAN 25% 100 ML IV ONE (16:30)
[2022-11-01] VITALS (9 sets, daily range): BP systolic 93–114; PULSE 77–94; RESP 18–20; TEMP 96.8–97.2; O2SAT 93–99
[2022-11-01] MEDS: INSULIN REGULAR, HUMAN 100 UNITS/ML, 3 ML VIAL (humuLIN R) SUBCUT PRN ×2 (05:54→17:59)
[2022-11-01 07:05] LABS: BASOPHILS % (AUTO) 0.2 % (0.0-2.0); EOSINOPHILS % (AUTO) 0.1 % (0.0-4.0); HEMATOCRIT 22.7 % (36-48); HEMOGLOBIN 7.4 g/dL (12.0-16.0); LYMPHOCYTES # (AUTO) 0.1 K/uL (1.0-5.5); LYMPHOCYTES % (AUTO) 0.8 % (20.5-51.5); MEAN CORPUSCULAR HEMOGLOBIN 28 pg (27-31); MEAN CORPUSCULAR HGB CONC 32 % (32-36); MEAN CORPUSCULAR VOLUME 86 fL (79.0-98.0); MONOCYTES # (AUTO) 0.8 K/uL (0.0-1.0); MONOCYTES % (AUTO) 4.5 % (1.7-9.3); NEUTROPHILS % (AUTO) 94.4 % (40.0-70.0); RED BLOOD CELL COUNT(AUTO) 2.66 MIL/uL (4.2-6.2); RED CELL DISTRIBUTION WIDTH 20.6 % (9.0-15.0)
[2022-11-01] MEDS: IPRATROPIUM/ALBUTEROL SULFATE 3 ML AMPUL.NEB (DUONEB) IH SCH ×3 (07:15→23:12)
[2022-11-01 07:25] LABS: CALCIUM 8.4 mg/dL (8.4-11.0); CREATININE 4.48 mg/dL (0.55-1.30); POTASSIUM 4.6 mmol/L (3.5-5.1); VANCOMYCIN,TROUGH 18.9 ug/mL (10.0-20.0)
[2022-11-01 07:35] LABS: PLATELET COUNT (AUTO) 48 K/uL (130-430)
[2022-11-01] MEDS: BALSAM PERU/CASTOR OIL 56.7 GM OINT...G. TP SCH (08:49)
[2022-11-01] MEDS: RIFAXIMIN 200 MG TABLET GT SCH (08:49)
[2022-11-01] MEDS: SILVER SULFADIAZINE 1%, 25 GM TOPICAL CREAM (SSD) TP SCH (08:49)
[2022-11-01] MEDS: FOLIC ACID 1 MG TABLET PO SCH (08:50)
[2022-11-01] MEDS: FERROUS SULFATE 325 MG TABLET.DR PO SCH (08:50)
[2022-11-01] MEDS: PANTOPRAZOLE SODIUM 40 MG TAB PO SCH (08:50)
[2022-11-01] MEDS: MIDODRINE HCL 5 MG TABLET (PROAMATINE) PO SCH ×3 (08:50→20:45)
[2022-11-01] MEDS: LACTULOSE 20 GM/30 ML UDC PO SCH ×3 (08:50→20:45)
[2022-11-01] MEDS: MICAFUNGIN SODIUM 100 MG in NS 100 ML IV SCH (11:11)
[2022-11-01 22:34] LABS: APPEARANCE,SPUN,BODY FLUID CLEAR (CLEAR); BF APPEARANCE UNSPUN CLOUDY (CLEAR); BODY FLUID COLOR DARK YELLOW (LT YELLOW); BODY FLUID SOURCE/ TYPE PARACENTESIS; SOURCE/TYPE ,BODY FLUID PARACENTESIS
[2022-11-01 22:35] LABS: BODY FLUID TOTAL VOLUME 2575 mL; EOSINOPHIL, BODY FLUID 0 %; LYMPHOCYTES, BODY FLUID 1 %; MONOCYTES,BODY FLUID 3 %; NEUTROPHIL, BODY FLUID 96 %; RBC, BODY FLUID 17878 /uL; WBC, BODY FLUID 511 /uL
[2022-11-02] VITALS (8 sets, daily range): BP systolic 84–130; PULSE 74–94; RESP 12–20; TEMP 96.6–97.7; O2SAT 95–99
[2022-11-02] MEDS: INSULIN REGULAR, HUMAN 100 UNITS/ML, 3 ML VIAL (humuLIN R) SUBCUT PRN ×3 (02:11→14:37)
[2022-11-02] MEDS: D5NS 1,000 ML IV SCH ×2 (05:00→17:57)
[2022-11-02 07:24] LABS: BASOPHILS % (AUTO) 0.1 % (0.0-2.0); EOSINOPHILS % (AUTO) 0.1 % (0.0-4.0); HEMOGLOBIN 7.7 g/dL (12.0-16.0); LYMPHOCYTES # (AUTO) 0.1 K/uL (1.0-5.5); LYMPHOCYTES % (AUTO) 0.7 % (20.5-51.5); MEAN CORPUSCULAR HEMOGLOBIN 28 pg (27-31); MEAN CORPUSCULAR HGB CONC 32 % (32-36); MEAN CORPUSCULAR VOLUME 87 fL (79.0-98.0); MONOCYTES # (AUTO) 0.7 K/uL (0.0-1.0); MONOCYTES % (AUTO) 3.9 % (1.7-9.3); NEUTROPHILS # (AUTO) 16.8 K/uL (1.8-7.7); NEUTROPHILS % (AUTO) 95.2 % (40.0-70.0); PLATELET COUNT (AUTO) 64 K/uL (130-430); RED BLOOD CELL COUNT(AUTO) 2.77 MIL/uL (4.2-6.2); RED CELL DISTRIBUTION WIDTH 21.6 % (9.0-15.0); WHITE BLOOD COUNT (AUTO) 17.7 K/uL (4.8-10.8)
[2022-11-02 07:37] LABS: CALCIUM 8.1 mg/dL (8.4-11.0); CREATININE 4.61 mg/dL (0.55-1.30); POTASSIUM 4.3 mmol/L (3.5-5.1)
[2022-11-02 07:51] LABS: INR 1.5 (0.8-1.2); PROTHROMBIN TIME 15.6 SECS (9.5-12.5)
[2022-11-02] MEDS: IPRATROPIUM/ALBUTEROL SULFATE 3 ML AMPUL.NEB (DUONEB) IH SCH ×3 (08:57→23:00)
[2022-11-02] MEDS ORDERED: VANCOMYCIN HCL 750 MG in NS 250 ML IV ONE (09:00)
[2022-11-02] MEDS ORDERED: NS 1000 ML IV.SOLN IV ONE (10:58)
[2022-11-02] MEDS ORDERED: LIDOCAINE/EPI 1% 1:100000 20 ML VIAL ONE (10:58)
[2022-11-02] MEDS ORDERED: PROPOFOL 200MG/ 20ML VIAL (DIPRIVAN) IV ONE (10:58)
[2022-11-02] MEDS ORDERED: NS IRRIG SOLN 1000 ML IR ONE (10:58)
[2022-11-02] MEDS ORDERED: NS 100 ML BAG ONE (10:58)
[2022-11-02] MEDS: LACTULOSE 20 GM/30 ML UDC PO SCH ×3 (14:29→21:00)
[2022-11-02] MEDS: MIDODRINE HCL 5 MG TABLET (PROAMATINE) PO SCH ×2 (14:29→15:00)
[2022-11-02 14:30] LABS: BODY FLUID GLUCOSE 154 mg/dL; BODY FLUID TOTAL PROTEIN 1.2 g/dL
[2022-11-02] MEDS: FOLIC ACID 1 MG TABLET PO SCH (14:30)
[2022-11-02] MEDS: FERROUS SULFATE 325 MG TABLET.DR PO SCH (14:30)
[2022-11-02] MEDS: RIFAXIMIN 200 MG TABLET GT SCH (14:30)
[2022-11-02] MEDS: PANTOPRAZOLE SODIUM 40 MG TAB PO SCH (14:30)
[2022-11-02] MEDS: MICAFUNGIN SODIUM 100 MG in NS 100 ML IV SCH (14:31)
[2022-11-02] MEDS: SILVER SULFADIAZINE 1%, 25 GM TOPICAL CREAM (SSD) TP SCH (14:31)
[2022-11-02] MEDS: BALSAM PERU/CASTOR OIL 56.7 GM OINT...G. TP SCH (14:32)
[2022-11-02] MEDS ORDERED: ALBUMIN HUMAN 25% 100 ML IV ONE ×2 (19:50→20:00)
[2022-11-03] VITALS (9 sets, daily range): BP systolic 85–118; PULSE 70–88; RESP 16–19; TEMP 96.9–98; O2SAT 95–100
[2022-11-03] MEDS: INSULIN REGULAR, HUMAN 100 UNITS/ML, 3 ML VIAL (humuLIN R) SUBCUT PRN ×4 (01:34→17:03)
[2022-11-03] MEDS: MIDODRINE HCL 5 MG TABLET (PROAMATINE) PO SCH ×4 (01:44→21:28)
[2022-11-03 06:39] LABS: BASOPHILS % (AUTO) 0.2 % (0.0-2.0); EOSINOPHILS % (AUTO) 0.1 % (0.0-4.0); LYMPHOCYTES # (AUTO) 0.1 K/uL (1.0-5.5); LYMPHOCYTES % (AUTO) 0.8 % (20.5-51.5); MEAN CORPUSCULAR HEMOGLOBIN 28 pg (27-31); MEAN CORPUSCULAR HGB CONC 32 % (32-36); MEAN CORPUSCULAR VOLUME 87 fL (79.0-98.0); MONOCYTES # (AUTO) 0.5 K/uL (0.0-1.0); MONOCYTES % (AUTO) 3.7 % (1.7-9.3); NEUTROPHILS # (AUTO) 14.3 K/uL (1.8-7.7); NEUTROPHILS % (AUTO) 95.2 % (40.0-70.0); RED BLOOD CELL COUNT(AUTO) 2.42 MIL/uL (4.2-6.2); RED CELL DISTRIBUTION WIDTH 22.2 % (9.0-15.0)
[2022-11-03 06:58] LABS: CALCIUM 7.6 mg/dL (8.4-11.0); CREATININE 3.48 mg/dL (0.55-1.30); POTASSIUM 3.6 mmol/L (3.5-5.1); VANCOMYCIN,RANDOM 21.9 ug/mL
[2022-11-03] MEDS: IPRATROPIUM/ALBUTEROL SULFATE 3 ML AMPUL.NEB (DUONEB) IH SCH ×3 (07:17→23:16)
[2022-11-03 07:59] LABS: HEMOGLOBIN 6.8 g/dL (12.0-16.0); PLATELET COUNT (AUTO) 33 K/uL (130-430)
[2022-11-03] MEDS: LACTULOSE 20 GM/30 ML UDC PO SCH ×3 (11:08→21:24)
[2022-11-03] MEDS: FERROUS SULFATE 325 MG TABLET.DR PO SCH (11:09)
[2022-11-03] MEDS: PANTOPRAZOLE SODIUM 40 MG TAB PO SCH (11:09)
[2022-11-03] MEDS: RIFAXIMIN 200 MG TABLET GT SCH (11:09)
[2022-11-03] MEDS: FOLIC ACID 1 MG TABLET PO SCH (11:10)
[2022-11-03] MEDS: MICAFUNGIN SODIUM 100 MG in NS 100 ML IV SCH (12:46)
[2022-11-03] MEDS: SILVER SULFADIAZINE 1%, 25 GM TOPICAL CREAM (SSD) TP SCH (14:13)
[2022-11-03] MEDS: BALSAM PERU/CASTOR OIL 56.7 GM OINT...G. TP SCH (14:14)
[2022-11-03] MEDS: D5NS 1,000 ML IV SCH (14:22)
[2022-11-03] MEDS: EPOETIN ALFA-EPBX 20,000 UNITS/ML VIAL SUBCUT SCH (16:53)
[2022-11-04] VITALS (12 sets, daily range): BP systolic 84–117; PULSE 78–84; RESP 18–20; TEMP 96.1–98.6; O2SAT 95–100
[2022-11-04] MEDS: D5NS 1,000 ML IV SCH (04:50)
[2022-11-04 05:47] LABS: CALCIUM 7.7 mg/dL (8.4-11.0); CREATININE 3.6 mg/dL (0.55-1.30); POTASSIUM 3.2 mmol/L (3.5-5.1)
[2022-11-04 05:48] LABS: BASOPHILS % (AUTO) 0.2 % (0.0-2.0); LYMPHOCYTES # (AUTO) 0.1 K/uL (1.0-5.5); MEAN CORPUSCULAR HEMOGLOBIN 28 pg (27-31); MEAN CORPUSCULAR HGB CONC 32 % (32-36); MEAN CORPUSCULAR VOLUME 87 fL (79.0-98.0); MONOCYTES # (AUTO) 0.6 K/uL (0.0-1.0); MONOCYTES % (AUTO) 4.2 % (1.7-9.3); NEUTROPHILS # (AUTO) 14.1 K/uL (1.8-7.7); NEUTROPHILS % (AUTO) 94.6 % (40.0-70.0); RED BLOOD CELL COUNT(AUTO) 2.45 MIL/uL (4.2-6.2); RED CELL DISTRIBUTION WIDTH 21.7 % (9.0-15.0); RETICULOCYTE COUNT 4.7 % (0.5-1.5); WHITE BLOOD COUNT (AUTO) 14.9 K/uL (4.8-10.8)
[2022-11-04 06:50] LABS: TOTAL IRON BIND. CAPACITY 140 ug/dL (250-450)
[2022-11-04 06:56] LABS: HEMOGLOBIN 6.9 g/dL (12.0-16.0)
[2022-11-04 06:57] LABS: HEMATOCRIT 21.4 % (36-48); PLATELET COUNT (AUTO) 36 K/uL (130-430)
[2022-11-04] MEDS: IPRATROPIUM/ALBUTEROL SULFATE 3 ML AMPUL.NEB (DUONEB) IH SCH ×3 (07:10→23:44)
[2022-11-04] MEDS ORDERED: POTASSIUM CHLORIDE 40 MEQ in 0.45% NS 250 ML IV ONE ×2 (08:00→09:00)
[2022-11-04] MEDS ORDERED: MIDAZOLAM HCL 2 MG/2 ML VIAL (VERSED) ONE ×2 (08:15→09:07)
[2022-11-04] MEDS ORDERED: fentaNYL CITRATE/PF 100 MCG/2 ML AMP ONE ×2 (08:16→09:08)
[2022-11-04] MEDS ORDERED: ePHEDrine sulfate 50 MG/ML VIAL ONE (08:16)
[2022-11-04] MEDS: BALSAM PERU/CASTOR OIL 56.7 GM OINT...G. TP SCH (09:00)
[2022-11-04] MEDS: FERROUS SULFATE 325 MG TABLET.DR PO SCH (09:00)
[2022-11-04] MEDS: FOLIC ACID 1 MG TABLET PO SCH (09:00)
[2022-11-04] MEDS: RIFAXIMIN 200 MG TABLET GT SCH (09:00)
[2022-11-04] MEDS: SILVER SULFADIAZINE 1%, 25 GM TOPICAL CREAM (SSD) TP SCH (09:00)
[2022-11-04] MEDS: LACTULOSE 20 GM/30 ML UDC PO SCH ×3 (09:00→20:34)
[2022-11-04] MEDS: MIDODRINE HCL 5 MG TABLET (PROAMATINE) PO SCH ×3 (09:00→20:34)
[2022-11-04] MEDS: PANTOPRAZOLE SODIUM 40 MG TAB PO SCH (09:00)
[2022-11-04] MEDS ORDERED: HEPARIN SODIUM,PORCINE/NS/PF 1,000 UNITS/500 ML BAG IV ONE (09:45)
[2022-11-04] MEDS ORDERED: NS IRRIG SOLN 1000 ML IR ONE (09:45)
[2022-11-04] MEDS ORDERED: LIDOCAINE 1% 10 MG/ML, 20 ML MDV ONE (09:45)
[2022-11-04] MEDS ORDERED: NS 100 ML BAG ONE (09:45)
[2022-11-04] MEDS: MICAFUNGIN SODIUM 100 MG in NS 100 ML IV SCH (11:28)
[2022-11-04] MEDS ORDERED: ALBUMIN HUMAN 25% 200 ML IV ONE (14:00)
[2022-11-04] MEDS ORDERED: NS 250 ML IV ONE (20:30)
[2022-11-04] MEDS: INSULIN REGULAR, HUMAN 100 UNITS/ML, 3 ML VIAL (humuLIN R) SUBCUT PRN (23:02)
[2022-11-05] VITALS (11 sets, daily range): BP systolic 91–129; PULSE 83–92; RESP 16–20; TEMP 97.1–99; O2SAT 95–100
[2022-11-05] MEDS: BALSAM PERU/CASTOR OIL 56.7 GM OINT...G. TP SCH (04:37)
[2022-11-05] MEDS: INSULIN REGULAR, HUMAN 100 UNITS/ML, 3 ML VIAL (humuLIN R) SUBCUT PRN ×3 (05:31→18:36)
[2022-11-05] MEDS: IPRATROPIUM/ALBUTEROL SULFATE 3 ML AMPUL.NEB (DUONEB) IH SCH ×3 (07:00→23:09)
[2022-11-05] MEDS: D5NS 1,000 ML IV SCH (07:18)
[2022-11-05 08:22] LABS: INR 1.7 (0.8-1.2); PROTHROMBIN TIME 16.7 SECS (9.5-12.5)
[2022-11-05 08:41] LABS: CALCIUM 7.2 mg/dL (8.4-11.0); CREATININE 1.91 mg/dL (0.55-1.30); POTASSIUM 3.4 mmol/L (3.5-5.1); VANCOMYCIN,RANDOM 12.7 ug/mL (20.0-30.0)
[2022-11-05 08:51] LABS: BASOPHILS % (AUTO) 0.3 % (0.0-2.0); EOSINOPHILS % (AUTO) 0.2 % (0.0-4.0); LYMPHOCYTES # (AUTO) 0.1 K/uL (1.0-5.5); LYMPHOCYTES % (AUTO) 0.7 % (20.5-51.5); MEAN CORPUSCULAR HEMOGLOBIN 28 pg (27-31); MEAN CORPUSCULAR HGB CONC 33 % (32-36); MEAN CORPUSCULAR VOLUME 84 fL (79.0-98.0); MONOCYTES # (AUTO) 0.4 K/uL (0.0-1.0); NEUTROPHILS # (AUTO) 9.7 K/uL (1.8-7.7); NEUTROPHILS % (AUTO) 94.8 % (40.0-70.0); RED BLOOD CELL COUNT(AUTO) 2.49 MIL/uL (4.2-6.2); RED CELL DISTRIBUTION WIDTH 22.2 % (9.0-15.0); WHITE BLOOD COUNT (AUTO) 10.2 K/uL (4.8-10.8)
[2022-11-05] MEDS: SILVER SULFADIAZINE 1%, 25 GM TOPICAL CREAM (SSD) TP SCH (09:00)
[2022-11-05 09:15] LABS: HEMATOCRIT 20.8 % (36-48); HEMOGLOBIN 6.8 g/dL (12.0-16.0)
[2022-11-05] MEDS ORDERED: VANCOMYCIN HCL 750 MG in NS 250 ML IV ONE (10:00)
[2022-11-05] MEDS: PANTOPRAZOLE SODIUM 40 MG TAB PO SCH (10:32)
[2022-11-05] MEDS: RIFAXIMIN 200 MG TABLET GT SCH (10:32)
[2022-11-05] MEDS: MIDODRINE HCL 5 MG TABLET (PROAMATINE) PO SCH ×3 (10:33→20:54)
[2022-11-05] MEDS: LACTULOSE 20 GM/30 ML UDC PO SCH ×3 (10:33→20:54)
[2022-11-05] MEDS: FERROUS SULFATE 325 MG TABLET.DR PO SCH (10:33)
[2022-11-05] MEDS: FOLIC ACID 1 MG TABLET PO SCH (10:33)
[2022-11-05 10:41] LABS: BASOPHILS % (AUTO) 0.1 % (0.0-2.0); EOSINOPHILS % (AUTO) 0.3 % (0.0-4.0); LYMPHOCYTES # (AUTO) 0.2 K/uL (1.0-5.5); LYMPHOCYTES % (AUTO) 1.5 % (20.5-51.5); MEAN CORPUSCULAR HEMOGLOBIN 27 pg (27-31); MEAN CORPUSCULAR HGB CONC 33 % (32-36); MEAN CORPUSCULAR VOLUME 83 fL (79.0-98.0); MONOCYTES # (AUTO) 0.6 K/uL (0.0-1.0); MONOCYTES % (AUTO) 6.1 % (1.7-9.3); NEUTROPHILS # (AUTO) 9.6 K/uL (1.8-7.7); RED BLOOD CELL COUNT(AUTO) 2.55 MIL/uL (4.2-6.2); RED CELL DISTRIBUTION WIDTH 22.3 % (9.0-15.0); WHITE BLOOD COUNT (AUTO) 10.4 K/uL (4.8-10.8)
[2022-11-05 10:46] LABS: HEMATOCRIT 21.3 % (36-48); PLATELET COUNT (AUTO) 22 K/uL (130-430)
[2022-11-05 12:44] LABS: PLATELET COUNT (AUTO) 28 K/uL (130-430)
[2022-11-06] VITALS (11 sets, daily range): BP systolic 100–117; PULSE 82–92; RESP 12–20; TEMP 97.5–98.6; O2SAT 97–100
[2022-11-06] MEDS: INSULIN REGULAR, HUMAN 100 UNITS/ML, 3 ML VIAL (humuLIN R) SUBCUT PRN ×4 (00:13→17:11)
[2022-11-06] MEDS: ACETAMINOPHEN 650 MG/20.3 ML UDC NG PRN ×2 (00:46→18:45)
[2022-11-06] MEDS ORDERED: LORazepam 2 MG/ML VIAL IVP ONE (02:30)
[2022-11-06] MEDS ORDERED: LORazepam 2 MG/ML VIAL ONE (02:37)
[2022-11-06 07:06] LABS: FERRITIN 652 ng/mL (15-150); FOLATE (FOLIC ACID) >20.0 ng/mL (>3.0)
[2022-11-06] MEDS: IPRATROPIUM/ALBUTEROL SULFATE 3 ML AMPUL.NEB (DUONEB) IH SCH ×2 (07:18→15:26)
[2022-11-06] MEDS: D5NS 1,000 ML IV SCH ×2 (07:50→21:10)
[2022-11-06 08:19] LABS: CREATININE 2.11 mg/dL (0.55-1.30); POTASSIUM 3.2 mmol/L (3.5-5.1)
[2022-11-06 08:31] LABS: HEMATOCRIT 24.6 % (36-48); HEMOGLOBIN 7.8 g/dL (12.0-16.0); MEAN CORPUSCULAR HEMOGLOBIN 27 pg (27-31); MEAN CORPUSCULAR HGB CONC 32 % (32-36); MEAN CORPUSCULAR VOLUME 85 fL (79.0-98.0); RED CELL DISTRIBUTION WIDTH 20.6 % (9.0-15.0); WHITE BLOOD COUNT (AUTO) 11.8 K/uL (4.8-10.8)
[2022-11-06] MEDS: LACTULOSE 20 GM/30 ML UDC PO SCH ×3 (08:47→21:08)
[2022-11-06] MEDS: FERROUS SULFATE 325 MG TABLET.DR PO SCH (08:47)
[2022-11-06] MEDS: PANTOPRAZOLE SODIUM 40 MG TAB PO SCH (08:47)
[2022-11-06] MEDS: RIFAXIMIN 200 MG TABLET GT SCH (08:47)
[2022-11-06] MEDS: FOLIC ACID 1 MG TABLET PO SCH (08:47)
[2022-11-06] MEDS: MIDODRINE HCL 5 MG TABLET (PROAMATINE) PO SCH ×3 (08:47→21:09)
[2022-11-06] MEDS: BALSAM PERU/CASTOR OIL 56.7 GM OINT...G. TP SCH (08:48)
[2022-11-06] MEDS: SILVER SULFADIAZINE 1%, 25 GM TOPICAL CREAM (SSD) TP SCH (08:49)
[2022-11-06 09:12] LABS: PLATELET COUNT (AUTO) 31 K/uL (130-430)
[2022-11-06 10:21] LABS: BASOPHILS % (MANUAL) 0 % (0-2); EOSINOPHILS % (MANUAL) 0 % (0-7); LYMPHOCYTES % (MANUAL) 3 % (20-46); MONOCYTES % (MANUAL) 5 % (0-11)
[2022-11-06 10:22] LABS: PLATELET ESTIMATE DECREASED (ADEQUATE)
[2022-11-06 10:23] LABS: ANISOCYTOSIS 1+; OVALOCYTES FEW; TARGET CELLS FEW
[2022-11-06] MEDS ORDERED: PHYTONADIONE 10 MG/ML AMP SUBCUT ONE (14:45)
[2022-11-06] MEDS: EPOETIN ALFA-EPBX 20,000 UNITS/ML VIAL SUBCUT SCH (16:52)
[2022-11-06] MEDS ORDERED: POTASSIUM CHLORIDE 20 MEQ/PKT PACKET PO ONE (18:45)
[2022-11-07] VITALS (9 sets, daily range): BP systolic 94–131; PULSE 90–96; RESP 16–18; TEMP 96.6–98.1; O2SAT 96–100
[2022-11-07] MEDS ORDERED: TEMAZEPAM 15 MG CAPSULE ONE (01:19)
[2022-11-07] MEDS ORDERED: TEMAZEPAM 15 MG CAPSULE PO ONE ×2 (02:00→21:00)
[2022-11-07 05:24] LABS: EOSINOPHILS % (AUTO) 0.2 % (0.0-4.0); HEMATOCRIT 23.6 % (36-48); HEMOGLOBIN 7.8 g/dL (12.0-16.0); LYMPHOCYTES # (AUTO) 0.2 K/uL (1.0-5.5); LYMPHOCYTES % (AUTO) 1.8 % (20.5-51.5); MEAN CORPUSCULAR HEMOGLOBIN 28 pg (27-31); MEAN CORPUSCULAR HGB CONC 33 % (32-36); MEAN CORPUSCULAR VOLUME 85 fL (79.0-98.0); MONOCYTES # (AUTO) 0.9 K/uL (0.0-1.0); MONOCYTES % (AUTO) 7.9 % (1.7-9.3); NEUTROPHILS # (AUTO) 9.8 K/uL (1.8-7.7); NEUTROPHILS % (AUTO) 90.1 % (40.0-70.0); RED BLOOD CELL COUNT(AUTO) 2.77 MIL/uL (4.2-6.2); RED CELL DISTRIBUTION WIDTH 22.3 % (9.0-15.0); WHITE BLOOD COUNT (AUTO) 10.9 K/uL (4.8-10.8)
[2022-11-07 05:27] LABS: PLATELET COUNT (AUTO) 27 K/uL (130-430)
[2022-11-07] MEDS: INSULIN REGULAR, HUMAN 100 UNITS/ML, 3 ML VIAL (humuLIN R) SUBCUT PRN ×3 (05:49→17:28)
[2022-11-07] MEDS: IPRATROPIUM/ALBUTEROL SULFATE 3 ML AMPUL.NEB (DUONEB) IH SCH ×3 (05:54→15:04)
[2022-11-07 05:56] LABS: INR 1.6 (0.8-1.2); PROTHROMBIN TIME 15.9 SECS (9.5-12.5)
[2022-11-07 05:59] LABS: CALCIUM 7.6 mg/dL (8.4-11.0); CREATININE 2.65 mg/dL (0.55-1.30); POTASSIUM 3.4 mmol/L (3.5-5.1); VANCOMYCIN,TROUGH 20.2 ug/mL (10.0-20.0)
[2022-11-07] MEDS: PANTOPRAZOLE SODIUM 40 MG TAB PO SCH (10:03)
[2022-11-07] MEDS: FOLIC ACID 1 MG TABLET PO SCH (10:03)
[2022-11-07] MEDS: MIDODRINE HCL 5 MG TABLET (PROAMATINE) PO SCH ×3 (10:03→20:26)
[2022-11-07] MEDS: FERROUS SULFATE 325 MG TABLET.DR PO SCH (10:03)
[2022-11-07] MEDS: LACTULOSE 20 GM/30 ML UDC PO SCH ×3 (10:03→20:26)
[2022-11-07] MEDS: RIFAXIMIN 200 MG TABLET GT SCH (10:03)
[2022-11-07] MEDS: BALSAM PERU/CASTOR OIL 56.7 GM OINT...G. TP SCH (10:04)
[2022-11-07] MEDS: SILVER SULFADIAZINE 1%, 25 GM TOPICAL CREAM (SSD) TP SCH (10:04)
[2022-11-07] MEDS: D5NS 1,000 ML IV SCH (17:25)
[2022-11-07] MEDS ORDERED: POTASSIUM CHLORIDE 20 MEQ/PKT PACKET PO ONE (18:15)
== END 2022-11-07 23:54 | disposition short-term general hospital (02) | DRG 871 ==
LOC: SED 12:21 → SMU 13:25 → STU 15:41 → SMU 10-21 12:04 → STU 11-03 17:54 → SMU 11-06 12:39
PROVIDERS: ADMIT Internal Medicine; ATTEND Internal Medicine
PROC: 5A1D70Z Performance of Urinary Filtration, Intermittent, Less than 6 Hours Per Day (ICD-10-PCS; 2022-10-19)
PROC: 30233N1 Transfusion of Nonautologous Red Blood Cells into Peripheral Vein, Percutaneous Approach (ICD-10-PCS; 2022-10-20)
PROC: 5A1D70Z Performance of Urinary Filtration, Intermittent, Less than 6 Hours Per Day (ICD-10-PCS; 2022-10-21)
PROC: 0W9G3ZZ Drainage of Peritoneal Cavity, Percutaneous Approach (ICD-10-PCS; principal; 2022-10-24)
PROC: 30233R1 Transfusion of Nonautologous Platelets into Peripheral Vein, Percutaneous Approach (ICD-10-PCS; 2022-10-24)
PROC: 5A1D70Z Performance of Urinary Filtration, Intermittent, Less than 6 Hours Per Day (ICD-10-PCS; 2022-10-26)
PROC: 0JPT3XZ Removal of Tunneled Vascular Access Device from Trunk Subcutaneous Tissue and Fascia, Percutaneous Approach (ICD-10-PCS; 2022-10-27)
PROC: 02PYX3Z Removal of Infusion Device from Great Vessel, External Approach (ICD-10-PCS; 2022-10-27)
PROC: 30233K1 Transfusion of Nonautologous Frozen Plasma into Peripheral Vein, Percutaneous Approach (ICD-10-PCS; 2022-10-31)
PROC: 5A1D70Z Performance of Urinary Filtration, Intermittent, Less than 6 Hours Per Day (ICD-10-PCS; 2022-10-31)
PROC: 05HN33Z Insertion of Infusion Device into Left Internal Jugular Vein, Percutaneous Approach (ICD-10-PCS; 2022-10-31)
PROC: B544ZZA Ultrasonography of Left Jugular Veins, Guidance (ICD-10-PCS; 2022-10-31)
PROC: 0JH63XZ Insertion of Tunneled Vascular Access Device into Chest Subcutaneous Tissue and Fascia, Percutaneous Approach (ICD-10-PCS; 2022-10-31)
PROC: 02HV33Z Insertion of Infusion Device into Superior Vena Cava, Percutaneous Approach (ICD-10-PCS; 2022-10-31)
PROC: B5181ZA Fluoroscopy of Superior Vena Cava using Low Osmolar Contrast, Guidance (ICD-10-PCS; 2022-10-31)
PROC: 0W9G3ZZ Drainage of Peritoneal Cavity, Percutaneous Approach (ICD-10-PCS; 2022-11-01)
PROC: 5A1D70Z Performance of Urinary Filtration, Intermittent, Less than 6 Hours Per Day (ICD-10-PCS; 2022-11-02)
PROC: 0JWT3XZ Revision of Tunneled Vascular Access Device in Trunk Subcutaneous Tissue and Fascia, Percutaneous Approach (ICD-10-PCS; 2022-11-02)
PROC: 5A1D70Z Performance of Urinary Filtration, Intermittent, Less than 6 Hours Per Day (ICD-10-PCS; 2022-11-03)
PROC: 5A1D70Z Performance of Urinary Filtration, Intermittent, Less than 6 Hours Per Day (ICD-10-PCS; 2022-11-04)
PROC: 0JPT3XZ Removal of Tunneled Vascular Access Device from Trunk Subcutaneous Tissue and Fascia, Percutaneous Approach (ICD-10-PCS; 2022-11-04)
PROC: 02HV33Z Insertion of Infusion Device into Superior Vena Cava, Percutaneous Approach (ICD-10-PCS; 2022-11-04)
PROC: B5181ZA Fluoroscopy of Superior Vena Cava using Low Osmolar Contrast, Guidance (ICD-10-PCS; 2022-11-04)
PROC: 5A1D70Z Performance of Urinary Filtration, Intermittent, Less than 6 Hours Per Day (ICD-10-PCS; 2022-11-05)
DX: A41.9 Sepsis, unspecified organism (principal); E43 Unspecified severe protein-calorie malnutrition; J18.9 Pneumonia, unspecified organism; N18.6 End stage renal disease; K65.2 Spontaneous bacterial peritonitis; G92.8 Other toxic encephalopathy; K94.23 Gastrostomy malfunction; E87.20 Acidosis, unspecified; I38 Endocarditis, valve unspecified; I12.0 Hypertensive chronic kidney disease with stage 5 chronic kidney disease or end stage renal disease; D61.818 Other pancytopenia; R18.8 Other ascites; T82.42XA Displacement of vascular dialysis catheter, initial encounter; Z20.822 Contact with and (suspected) exposure to COVID-19; E11.22 Type 2 diabetes mellitus with diabetic chronic kidney disease; D63.1 Anemia in chronic kidney disease; K21.9 Gastro-esophageal reflux disease without esophagitis; K74.60 Unspecified cirrhosis of liver; R13.10 Dysphagia, unspecified; D69.6 Thrombocytopenia, unspecified; I95.9 Hypotension, unspecified; K76.82 Hepatic encephalopathy; Z86.73 Personal history of transient ischemic attack (TIA), and cerebral infarction without residual deficits; Z99.2 Dependence on renal dialysis; Z68.24 Body mass index [BMI] 24.0-24.9, adult; Y83.8 Other surgical procedures as the cause of abnormal reaction of the patient, or of later complication, without mention of misadventure at the time of the procedure; Y92.89 Other specified places as the place of occurrence of the external cause
CPT/HCPCS: 36415; 49083; 71045; 74018; 74240-TC; 76000; 76700-TC; 80048; 80053; 80202; 82009; 82042; 82140; 82150; 82272; 82607; 82728; 82746; 82947; 82962; 83540; 83550; 83605; 83690; 83735; 84100; 84157; 84478; 84484; 85007; 85025; 85027; 85044; 85384; 85610-TC; 85730-TC; 86886; 86900; 86901; 86920; 87040; 87070-TC; 87075-TC; 87081; 87186-TC; 89051-TC; 89060-TC; 90935; 90937; 93005; 93306; 94640; 94664; 94760; 96360; 99291; C1750; C1752; C1769; G0378; J0696; J1644; J1815; J1956; J2001; J2060; J2248; J2543; J2704; J3010; J3430; J3465; J3475; J3480; J3490; J7030; J7050; J7060; J7131; P9021; P9034; P9046; P9059; Q5106; Q9963